=== PATIENT | male | born 2000 | race Caucasian/White ===

== ENCOUNTER 2019-03-10 12:35 | Emergency (ER) | payer BC ==
[2019-03-10 13:37] LABS: BASOPHILS % 0.6 % (0.0-1.5); NEUTROPHILS # 16.9 # k/uL (1.4-7.7)
[2019-03-10] MEDS ORDERED: 0.9 % SODIUM CHLORIDE 1,000 ML IV ONE (13:40)
[2019-03-10 13:57] LABS: eGFR (Non-African) > 60
[2019-03-10 14:19] LABS: APPEARANCE,URINE CLOUDY (CLEAR); COLOR,URINE YELLOW (YELLOW); OCCULT BLOOD,URINE TRACE-INTACT (NEGATIVE)
[2019-03-10 14:20] LABS: PH URINE 8.5 (5.0 - 8.0)
--- NOTE | 2019-03-10 14:41 | ED Physician Documentation ---
General Adult - HISTORIAN Historian: patient - HPI Chief Complaint: General Adult Onset: days ago (Sunday) Timing: worse Further Comments: yes (19 year old male patient presents with complaints of constipation and difficulty voiding. Last BM Sat am 03/08/2019. Patient reports his boyfriend placed a catheter in his penis Sunday around 0600 for sexual pleasure. Patient reports boyfriend "cleaned" the catheter. Patient states he has not voided since catheter was inserted. Patient states he used a fleets enema and suppository Sunday night. Patient complaining of periumbilical pain. Was able to void on arrival to ER.) - ROS CONST: no problems EYES/ENT: none CVS/RESP: none GI/: diarrhea (frequently) - PAST HX Past History: other (GERD) Allergies/Adverse Reactions: Allergies Allergy/AdvReac Type Severity Reaction Status Date / Time methylphenidate Allergy Verified 03/10/19 14:11 [From Concerta] tree nut Allergy Verified 03/10/19 14:11 Home Medications: Ambulatory Orders Medication Instructions Recorded Ciprofloxacin HCl [Cipro] 500 mg PO BID #14 tablet 03/10/19 - SOCIAL HX Smoking History: cigar Alcohol Use: occasionally - FAMILY HX Family History: No - REVIEWED ASSESSMENTS Nursing Assessment Reviewed: Yes Vitals Reviewed: Yes Progress - Progress Progress: Reviewed lab results with patient. will progress with CT abd Reviewed CT results with patient; questions answered. Offered STD testing. Instructed patient not to place foreign objects into his penis. ED Results Lab/Radiology - Lab Results Lab Results: Lab Results 03/10/19 03/10/19 03/10/19 13:40 13:33 13:33 WBC 19.70 K/ul H K/ul (4.00-12.00) RBC 4.89 M/ul M/ul (3.90-5.20) Hgb 14.9 g/dL g/dL (12.0-18.0) Hct 44.1 % % (37.0-53.0) MCV 90.0 fl fl (80.0-100.0) MCH 30.4 pg pg (28.0-34.0) MCHC 33.7 g/dL g/dL (30.0-36.0) RDW 11.7 % % (11.3-14.3) Plt Count 221 K/mm3 K/mm3 (130-400) Neut % (Auto) 85.7 % H % (39.0-79.0) Lymph % (Auto) 5.6 % L % (16.0-50.0) [place] % (Auto) 6.9 % % (0.0-11.0) Eos % (Auto) 1.2 % % (0.0-6.8) Baso % (Auto) 0.6 % % (0.0-1.5) Neut # (Auto) 16.9 # k/uL H # k/uL (1.4-7.7) Lymph # (Auto) 1.1 # k/uL # k/uL (0.6-4.0) [place] # (Auto) 1.4 # k/uL H # k/uL (0.0-0.9) Eos # (Auto) 0.2 # k/uL # k/uL (0.0-0.6) Baso # (Auto) 0.1 # k/uL # k/uL (0.0-0.5) Sodium 137 mmol/L mmol/L (137-145) Potassium 3.6 mmol/L mmol/L (3.5-5.1) Chloride 103 mmol/L mmol/L (98-107) Carbon Dioxide 22 mmol/L mmol/L (22-30) BUN 11 mg/dL mg/dL (9-20) Creatinine 0.81 mg/dL mg/dL (0.66-1.25) Est GFR ( Amer) > 60 (60 - ) Est GFR (Non-Af Amer) > 60 (60 - ) Glucose 127 mg/dL H mg/dL (74-106) Lactate 2.0 U/L U/L (0.7-2.1) Calcium 10.1 mg/dL mg/dL (8.4-10.2) Total Bilirubin 1.0 mg/dL mg/dL (0.2-1.3) AST 17 U/L U/L (15-46) ALT 20 U/L U/L (13-69) Alkaline Phosphatase 69 U/L U/L (38-126) Total Protein 7.6 g/dL g/dL (6.3-8.2) Albumin 4.7 g/dL g/dL (3.5-5.0) Urine Color Urine Appearance Urine pH Ur Specific [place] Urine Protein Urine Ketones Urine Occult Blood Urine Nitrite Urine Bilirubin Urine Urobilinogen Ur Leukocyte Esterase Urine Glucose 03/10/19 12:45 WBC RBC Hgb Hct MCV MCH MCHC RDW Plt Count Neut % (Auto) Lymph % (Auto) [place] % (Auto) Eos % (Auto) Baso % (Auto) Neut # (Auto) Lymph # (Auto) [place] # (Auto) Eos # (Auto) Baso # (Auto) Sodium Potassium Chloride Carbon Dioxide BUN Creatinine Est GFR ( Amer) Est GFR (Non-Af Amer) Glucose Lactate Calcium Total Bilirubin AST ALT Alkaline Phosphatase Total Protein Albumin Urine Color Yellow (YELLOW) Urine Appearance Cloudy (CLEAR) Urine pH 8.5 (5.0 - 8.0) Ur Specific [place] 1.015 (1.010-1.030) Urine Protein 3+ mg/dL H mg/dL (NEGATIVE) Urine Ketones 2+ mg/dL H mg/dL (NEGATIVE) Urine Occult Blood Trace-intact H (NEGATIVE) Urine Nitrite Positive H (NEGATIVE) Urine Bilirubin 1+ H (NEGATIVE) Urine Urobilinogen 1.0 Eu Eu (0.2-1.0) Ur Leukocyte Esterase 1+ H (NEGATIVE) Urine Glucose Negative mg/dL mg/dL (NEGATIVE) - Orders Orders: ED Orders Category Date Time Status Place IV Lock 1T Care 03/10/19 13:[address] ABD & PELVIS W/ CON Stat Exams 03/10/19 Taken BLOOD CULTURE Stat Lab 03/10/19 14:10 Received CBC/PLATELET/DIFF Stat Lab 03/10/19 13:33 Completed CMP Stat Lab 03/10/19 13:33 Completed LACTATE Stat Lab 03/10/19 13:40 Completed UA MACRO DIP ONLY Stat Lab 03/10/19 12:45 Completed URINE CULTURE Stat Lab 03/10/19 12:45 Received 0.9 % Sodium Chloride [Normal Saline] 1,000 ml Med 03/10/19 13:40 Discontinued IV NOW General Adult Physical Exam - PHYSICAL EXAM GENERAL APPEARANCE: moderate distress EENT: eye inspection normal, VERONIKA RESPIRATORY: no resp distress, chest non-tender, breath sounds normal CVS: reg rate & rhythm, heart sounds normal, equal pulses, no murmur, no gallop, PMI nml, no JVD, no friction rub, 24 ABDOMEN: soft, no organomegaly, normal bowel sounds, no abdominal bruit, no distension, tenderness (periumbilical), decreased BS BACK: normal inspection, no CVA tenderness SKIN: normal color, warm/dry, NR, INT, PAL, DR EXTREMITIES: non-tender, normal range of motion, no evidence of injury, no edema, J, PLUMBER PIPE FITTING NEURO: oriented X3, motor nml, sensation nml, mood/affect nml Discharge Clincal Impression: foreign body inserted into penis Constipation Qualifiers: Constipation type: unspecified constipation type Qualified Code(s): K59.00 - Constipation, unspecified UTI (urinary tract infection) Qualifiers: Urinary tract infection type: urethritis Qualified Code(s): N34.2 - Other urethritis Prescriptions: Ciprofloxacin HCl [Cipro] 500 mg PO BID #14 tablet Referrals: Primary Doctor,No [Primary Care Provider] - 2 Days Additional Instructions: Constipation You were given Magnesium citrate in the ER. You can expect to have multiple BM before 10pm tonight. Increase the amount ofhigh-fiber foodsin your diet. Choose more whole grain breads, cereals and rice. Select more raw fruits and vegetables -- eat the peel, if appropriate. Drink six to eight glasses of water each day. Limit highly refined and processed foods. Over the counter Laxative as needed UTI Do not place foreign objects into your penis. 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 Avoid caffeinated beverages You may want to try Azo over the counter for urinary pain. Follow package directions Cranberry juice will help with symptoms. Tylenol every 4 hours as needed for pain/fever or ibuprofen every 6 hours as needed for pain and fever See your primary care provider for a repeat UA 48 hours after completing your antibiotic. Return to the emergency department or call your doctor, if you are having severe abdominal pain, fever >101.0, or if there is blood in the vomit or diarrhea, or you cannot keep down liquids or solid food. Condition: Stable Disposition: 01 HOME, SELF-CARE Decision to Admit: NO Decision Time: 15:17
--- NOTE | 2019-03-10 14:59 | Diagnostic Imaging Report ---
ARON ALEGRIA (HEATING ELEMENT REPAIRER) - ER [facility] [id number] [facility] [address] [place], [place]. [address] Report Submission Date: Mar 10, 2019 2:54:47 PM CDT Patient Study Name: BISHOP PIPPA Date: Mar 10, 2019 2:15:55 PM CDT Modality Type: CT\SR Gender: M Description: CT ABD/PELV W/ CON : 89 Institution: [facility] Physician: ARON ALEGRIA (HEATING ELEMENT REPAIRER) - ER Examination: CT Abdomen/pelvis History: ABD PAIN, LEUKOCYTOSIS Comparison exams: None available Technique: CT Abdomen/pelvis without IV protocol. Findings: Liver, spleen, adrenals, pancreas, kidneys and gallbladder are without gross irregularity given exam technique. No gallstone. No suspicious renal calcifications. Ureters are nondilated in their course through the abdomen and pelvis. No central calcifications. Bladder margin within normal limits. Abdominal aorta without aneurysm or peripheral atherosclerotic disease. Cardiac silhouette is not enlarged. No pericardial effusion. A few small bowel air fluid levels. Stool within the large bowel limiting sensitivity. No mesenteric inflammatory changes or free fluid. Appendix is visualized and is without inflammatory changes. Osseous structures appropriate for age. Lung bases without infiltrate. No effusion. Impression: No acute upper abdominal organ inflammatory process. Few scattered small bowel air-fluid levels. No abnormal bowel dilation. Moderate large bowel stool No gallstone. No suspicious renal calcifications or abnormal ureteric dilation. No lung base consolidation or effusion. Electronically signed on Mar 10, 2019 2:54:47 PM CDT by: Ricardo DAUGHERTY
[2019-03-10] MEDS ORDERED: MAGNESIUM CITRATE 296 ML BOTTLE PO ONE (15:13)
[2019-03-10 16:04] VITALS: BP 112/62
== END 2019-03-10 16:02 | disposition home or self-care (01) ==
LOC: ED 12:35
DX: K59.09 Other constipation (principal); N39.0 Urinary tract infection, site not specified
CPT/HCPCS: 36415; 74177; 80053; 81002; 83605; 85025; 87040; 87086; 87491; 87591; 99282; J7030; Q9967; S1016